=== PATIENT | female | born 1955 | race Caucasian/White ===

== ENCOUNTER 2020-11-13 09:01 | Observation (INO) | payer OTHER, MEDICARE ==
[~2020-11-13] VITALS: Ht 152.4 cm; Wt 61.2 kg
[~2020-11-13 09:01] MED LIST: AMIL5 PO; AMLO5 PO; ASPI81EC PO; ATEN50; Aspirin EC81 MG PO; CODBUTASA PO; FOLIC ACID PO; FOLIC ACID0.4 MG PO; IMITREX50 M1 PO; LANS30EC PO; LIPITOR PO; LISI20 PO; LORA1 PO; LORA2; NITR.4SL SL; PANT40 PO; POTCHL10ER PO; RANITIDINE PO; TOPI25 PO
[2020-11-13] MEDS ORDERED: CAL-CITRATE PL1 EAC2 PO (09:24)
[2020-11-13 09:38] LABS: BASOPHILS ABSOLUTE AUTO 0.03 K/mm3 (0.00-0.23); BASOPHILS PERCENT AUTO 0 % (0-2); EOSINOPHILS ABSOLUTE AUTO 0.03 K/mm3 (0.00-0.68); EOSINOPHILS PERCENT AUTO 0 % (0-6); Hematocrit 35.8 % (33.0-51.0); Hemoglobin 12.2 g/dL (11.5-16.0); IMMATURE GRAN ABSOLUTE AUTO 0.04 K/mm3 (0.00-0.10); IMMATURE GRAN PERCENT AUTO 0 % (0-1); LYMPHOCYTES ABSOLUTE AUTO 2.51 K/mm3 (0.84-5.20); LYMPHOCYTES PERCENT AUTO 19 % (21-46); MONOCYTES ABSOLUTE AUTO 1.25 K/mm3 (0.16-1.47); MONOCYTES PERCENT AUTO 10 % (4-13); Mean Corpuscular HGB 32.9 pg (26.0-34.0); Mean Corpuscular HGB Conc 34.1 g/dL (31.5-36.5); Mean Corpuscular Volume 97 fL (80-100); Mean Platelet Volume 11.7 fL (9.1-12.4); NEUTROPHILS ABSOLUTE AUTO 9.08 K/mm3 (1.96-9.15); NEUTROPHILS PERCENT AUTO 70 % (41-73); Platelet Count 267 K/mm3 (150-400); RDW Coefficient Variation 14.5 % (11.7-14.2); RDW Standard Deviation 51.2 fL (35.1-46.3); Red Blood Cell Count 3.71 M/mm3 (3.80-5.20); White Blood Cell Count 12.94 K/mm3 (4.00-11.30)
[2020-11-13 09:48] LABS: Alanine Aminotransfer (ALT/SGP 25 U/L (12-78); Albumin, Blood 3.6 g/dL (3.4-5.0); Alk Phos 99 U/L (50-136); Anion Gap 12 mmol/L (6-16); Aspartate Aminotrans (AST/SGOT 25 U/L (12-37); Blood Urea Nitrogen 16 mg/dL (8-24); Bun/Creatinine Ratio 17.6 (12.0-20.0); CO2, Blood 19 mmol/L (21-32); CPK Creatine Kinase 218 U/L (26-193); Calcium, Blood 9.2 mg/dL (8.5-10.1); Chloride, Blood 112 mmol/L (98-108); Creatinine, Blood 0.91 mg/dL (0.40-1.00); Globulin, Blood 3.7 g/dL (2.2-4.0); Glomerular Filtration Rate >60 (60-); Glucose, Blood 116 mg/dL (70-99); Potassium, Blood 3.6 mmol/L (3.5-5.5); Sodium, Blood 143 mmol/L (136-145); Total Protein, Blood 7.3 g/dL (6.4-8.2)
[2020-11-13 10:08] LABS: Creatine Kinase MB Index 0.9 (0.0-4.0)
[2020-11-13] MEDS ORDERED: METO25 PO (12:26)
[2020-11-13] MEDS ORDERED: Hair, Skin & N1 EACH PO (12:53)
--- NOTE | 2020-11-13 19:48 | NUR ---
PT ARRIVED ON THE FLOOR AT 1550. CLIENT ADMITTED WITH MCA ISHEMIC STROKE, GLF. NEGATIVE FOR FRACTURE. DENIED PAIN AT ARRIVAL. MEDICATED WITH TYLENOL LATER FOR R HIP. PUPILS EQUAL AND REACTIVE, EQUAL APPLICATIONS SUPPORT LEAD STRENGTH, L FACIAL DROOP. COUGH AND GAG REFLEX INTACT. CLIENT AA&OX4. PLEASANT AND COOPERATIVE. DAUGHTER PRESENT AND SUPPORTIVE. CLIENT HAS NO CONCERNS AT SHIFT CHANGE
[2020-11-14 01:28] LABS: Source, Urine Clean Catch
[2020-11-14 01:35] LABS: Bilirubin, Urine Neg (Neg); Blood, Urine 1+ (Neg); Glucose Qualitative, Urine Neg (Neg); Ketones, Urine 1+ (Neg); Leukocyte Esterase, Urine 1+ (Neg); Nitrite, Urine Neg (Neg); Protein, Urine 1+ (Neg); Urobilinogen, Urine NORM (Normal)
[2020-11-14 01:45] LABS: Appearance, Urine Clear (Clear); Bacteria Rare /hpf; Color, Urine Yellow (P-Yellow); Mucus Light (0-Heavy); Red Blood Cells, Urine 0-2 /hpf (0-2); Squamous Epithelial Cells Rare /hpf (Few)
--- NOTE | 2020-11-14 05:04 | NUR ---
SHIFT SUMMARY: VSS. AFEB. AAOX4. SLOW TO RESPOND. SPEECH CLEAR. L FACIAL DROOP. NO UNILATERAL WEAKNESS. SALES AND OPERATIONS TRAINEE/PUSHES/PULLS ALL STRONG, EQUAL BILATERALLY. BASELINE N/T AFFECTING TOES ON B FEET. MED FOR ARRIOLA X 1. DENIES R HIP PAIN TONIGHT. CONTINENT OF URINE. COMMUNICATES NEEDS. BED ALARM ON DUE TO HIGH FALL RISK. NO ACUTE OVERNIGHT EVENTS. WCTM.
[2020-11-14 05:59] LABS: Bun/Creatinine Ratio 16.1 (12.0-20.0); Calcium, Blood 8.4 mg/dL (8.5-10.1); Creatinine, Blood 0.99 mg/dL (0.40-1.00)
[2020-11-14 09:33] LABS: CHOL/HDL RATIO 2.6; Cholesterol 150 mg/dL (50-200); HDL Cholesterol 58 mg/dL (>39); LDL/HDL RATIO 1.2; Low Density Lipoprotein Chol 68 mg/dL (0-110); Triglycerides 119 mg/dL (30-160); Very Low Density Lipoprot Chol 23 mg/dL (6-32)
--- NOTE | 2020-11-14 10:57 | NUR ---
ASSUMED PT CARE @0705. CLIENT AA7OX4. PLEASANT AND COOPERATIVE. SBA. DOES REPORT HEADACHE. PREVIOUSLY MEDICATED BY POC RN. WILL MONITOR. OBDULIA GRAF DIET [facility]. SOFT MEDS WITH APPLESAUCE UP FOR MEALS. CLIENT SCHEDULED FOR ULTRASOUND AND POSSIBLE DISCHARGE TODAY.
[2020-11-14] MEDS ORDERED: ASPI81CH PO (14:47)
--- NOTE | 2020-11-14 19:20 | NUR ---
Per admit trigger, I was tasked to meet with Nicholas to offer information about ACP. She did not see a need for an AD or POLST. She wants all heroic measures. She has one dtr that is her MPOA. She was in pocess of discharge when we spoke.
--- NOTE | 2020-11-14 19:25 | NUR ---
Client discharged home with HH. Discharge paperwork and medications reviewed. Client verbalized understanding. She had no questions at DC. Client escorted by this RN to N exit by with daughter.
== END 2020-11-14 16:38 | disposition home health service (06) ==
LOC: ER 09:01 → MEDS 09:02 → ERHOLD 09:02 → MEDS 15:48
PROVIDERS: Family Medicine; Physician Assistant; ADMIT Hospitalist
DX: I63.511 Cerebral infarction due to unspecified occlusion or stenosis of right middle cerebral artery (principal); R29.810 Facial weakness; R47.81 Slurred speech; R53.1 Weakness; W01.0XXA Fall on same level from slipping, tripping and stumbling without subsequent striking against object, initial encounter; M62.82 Rhabdomyolysis; I10 Essential (primary) hypertension; K21.9 Gastro-esophageal reflux disease without esophagitis; M16.11 Unilateral primary osteoarthritis, right hip; Z79.82 Long term (current) use of aspirin; Y92.009 Unspecified place in unspecified non-institutional (private) residence as the place of occurrence of the external cause; Z87.891 Personal history of nicotine dependence
CPT/HCPCS: 36415; 70450; 73502; 80048; 80053; 80061; 81001; 82550; 82553; 85025; 92610; 93005; 93010; 93306; 93880; 97110; 97162; 99285-25; A9270; G0378; J7030

== ENCOUNTER 2021-03-09 11:52 | Emergency (ER) | payer OTHER, MEDICARE ==
[~2021-03-09] VITALS: Ht 152.4 cm; Wt 54.4 kg
[~2021-03-09 11:52] MED LIST changes: +ASPI81CH PO; +CAL-CITRATE PL1 EAC2 PO; +Hair, Skin & N1 EACH PO; +METO25 PO
[2021-03-09 13:08] LABS: Albumin, Blood 3.5 g/dL (3.4-5.0); Albumin/Globulin Ratio 0.9 (0.8-1.8); Bilirubin, Total 0.6 mg/dL (0.1-1.0); Bun/Creatinine Ratio 12.4 (12.0-20.0); Creatinine, Blood 1.05 mg/dL (0.40-1.00); Globulin, Blood 4.1 g/dL (2.2-4.0); Potassium, Blood 3.2 mmol/L (3.5-5.5); Total Protein, Blood 7.6 g/dL (6.4-8.2)
[2021-03-09 13:12] LABS: BASOPHILS ABSOLUTE AUTO 0.06 K/mm3 (0.00-0.23); BASOPHILS PERCENT AUTO 1 % (0-2); EOSINOPHILS ABSOLUTE AUTO 0.28 K/mm3 (0.00-0.68); EOSINOPHILS PERCENT AUTO 4 % (0-6); Hemoglobin 12.9 g/dL (11.5-16.0); IMMATURE GRAN ABSOLUTE AUTO 0.03 K/mm3 (0.00-0.10); IMMATURE GRAN PERCENT AUTO 0 % (0-1); LYMPHOCYTES ABSOLUTE AUTO 2.83 K/mm3 (0.84-5.20); LYMPHOCYTES PERCENT AUTO 37 % (21-46); MONOCYTES ABSOLUTE AUTO 0.59 K/mm3 (0.16-1.47); MONOCYTES PERCENT AUTO 8 % (4-13); Mean Corpuscular HGB 32.7 pg (26.0-34.0); Mean Corpuscular HGB Conc 33.9 g/dL (31.5-36.5); Mean Corpuscular Volume 96 fL (80-100); Mean Platelet Volume 10.5 fL (9.1-12.4); NEUTROPHILS ABSOLUTE AUTO 3.79 K/mm3 (1.96-9.15); NEUTROPHILS PERCENT AUTO 50 % (41-73); Platelet Count 415 K/mm3 (150-400); RDW Coefficient Variation 14.6 % (11.7-14.2); RDW Standard Deviation 51.6 fL (35.1-46.3); Red Blood Cell Count 3.95 M/mm3 (3.80-5.20); White Blood Cell Count 7.58 K/mm3 (4.00-11.30)
[2021-03-09] MEDS ORDERED: ATOR20 PO (15:49)
[2021-03-09] MEDS ORDERED: XARELTO2.5 M1 PO (15:49)
[2021-03-09] MEDS ORDERED: CLOP75 PO (15:49)
== END 2021-03-09 16:30 | disposition home or self-care (01) ==
LOC: ER 11:52
PROVIDERS: Physician Assistant
DX: I70.90 Unspecified atherosclerosis (principal); Z87.891 Personal history of nicotine dependence; Z79.82 Long term (current) use of aspirin; Z79.899 Other long term (current) drug therapy
CPT/HCPCS: 36415; 80053; 85025; 93005; 93010; 93971; 99284-25; A9270

== ENCOUNTER 2021-03-29 08:58 | Day surgery (SDC) | payer OTHER, MEDICARE ==
[~2021-03-29] VITALS: Ht 152.4 cm; Wt 61.8 kg
[~2021-03-29 08:58] MED LIST changes: +ATOR20 PO; +CLOP75 PO; +XARELTO2.5 M1 PO
--- NOTE | 2021-03-29 13:51 | NUR ---
ARRIVAL TO ICU PT ARRIVES TO ICU FROM MEDICAL OFFICE TECHNICIAN AT 1225. PT c 7 F CATH TO RIGHT FEMORAL ARTERY. PRESSURE BAG c TRANSDUCER ON ARRIVAL. STARTED TPA AT 1 MG/HR X 6 HOURS. NO HEMATOMA, SWELLING, ECCHYMOSIS NOTED. NON TENDER. BILATERAL PEDAL PULSES BY DOPPLER. PT REPORTS CHRONIC NUMBNESS TO FEET BILATERALLY, WORSE ON LEFT. A&OX 4. LUNGS CLEAR. VSS. HEPARIN STARTED AT 300 UNITS/HR. PLAN TO RETURN TO MEDICAL OFFICE TECHNICIAN TOMORROW. WILL CONTINUE TO MONITOR.
--- NOTE | 2021-03-29 17:32 | NUR ---
SHIFT SUMMARY PT ADMITTED FROM [facility] FOR EXT RECOVERY THIS SHIFT. PLAN TO RETURN TO [facility] TOMORROW. TPA INFUSING TO RIGHT GROIN SHEATH AT 1 MG/HR, SITE WNL, HEPARIN IVP AT 300 UNITS/HR. BILATERAL PULSES BY DOPPLER, SKIN P/W/D. PT REPORTS NO CHANGE TO CHRONIC NUMBNESS IN FEET. VSS. WILL CONTINUE TO MONITOR UNTIL REPORT TO ONCOMING NURSE.
--- NOTE | 2021-03-29 19:38 | NUR ---
CATHFLOW CATHFLOW RATE DECREASED TO 0.5MG/HR AT 1930
--- NOTE | 2021-03-29 22:42 | NUR ---
ASSUMED CARE AT 1900 PT LAYING IN BED IN REVERSE TRENDELENBURG POSITION INTERACTING WITH AUSTYN. PT IS ALERT/ORIENTED X4 AND ABLE TO MAKE HER NEEDS KNOWN. SPO2 >95% ON RA. AFEBRILE. HR 60-80'S. BP STABLE. SHEETH TO RT GROIN DRESSING C/D/I; AREA AROUND SHEETH SHOWS NO SIGNS OF BLEEDING, HEMATOMA, OR PAIN; CATHFLOW INFUSING VIA RT GROIN AT 0.5MG/HR STARTING AT 1930. BILATERAL LOWER EXTREMITY PULSES FOUND VIA DOPPLER. HEPARIN INFUSING AT 300UNITS/HR. PT VERY COMPLIENT WITH NOT MOVING OR BENDING RT LEG. NO C/O PAIN TO BLE. SEE SHIFT ASSESSMENT FOR FULL ASSESSMENT.
--- NOTE | 2021-03-29 23:47 | NUR ---
REASSESSMENT RT GROIN SITE CONT TO SHOW NO SIGNS OF BLEEDING, HEMATOMA, OR PAIN. PT RESTING COMFORTABLY.
[2021-03-30 01:52] LABS: Source, Urine Catheter
[2021-03-30 01:56] LABS: Appearance, Urine Clear (Clear); Bilirubin, Urine Neg (Neg); Blood, Urine Neg (Neg); Color, Urine Yellow (P-Yellow); Glucose Qualitative, Urine Neg (Neg); Ketones, Urine Neg (Neg); Leukocyte Esterase, Urine Neg (Neg); Nitrite, Urine Neg (Neg); Protein, Urine Neg (Neg); Urobilinogen, Urine NORM (Normal); pH, Urine 6.5 (5.0-8.0)
--- NOTE | 2021-03-30 01:59 | NUR ---
UPDATE PT EXPERIENCEING DISCOMFORT RELATED TO URINARY RETENTION. BLADDER SCAN PERFORMED SHOWING 450ML URINE IN BLADDER. 14f CLOUDE REED INSERTED AT 0130; PT TOLERATED WELL. UA COLLECTED AND SENT.
--- NOTE | 2021-03-30 06:40 | NUR ---
END OF SHIFT SUMMARY PT SLEPT FOR A FEW HOURS T/O THE SHIFT. PT IS ALERT/ORIENTED X4 AND ABLE TO MAKE HER NEEDS KNOWN. SPO2 >95% ON RA. AFEBRILE. HR 60-70'S. BP STABLE. RT GROIN SHOWS NO SIGNS OF BLEEDING, HEMATOMA, OR PAIN; CATHFLOW INFUSING VIA RT GROIN AT 0.5MG/HR. HEPARIN INFUSING AT 300UNITS/HR. BLE FOUND VIA DOPPLER. PT VERY COMPLIENT WITH KEEPING RLE STRAIGHT. REED CATH PATENT AND DRAINING TO GRAVITY. WILL REPORT TO AM RN WHEN AVAILABLE.
--- NOTE | 2021-03-30 10:00 | NUR ---
Care Assumed 0700 - Extended recovery Pt in reverse trendelenburg position, sheeth to RT groin site, dressing c/d/I. A/O X 4, pt on phone with daughter to confirm ride for later on today. At 0700 tPA 0.5 mg/hr infusing via RT groin site, increased to 1 mg/hr per order after pt returned from OR. Heparin infusing @ 300 units/hr, infusing via right wrist IV. Pt taken to OR around 0730 and returned an hour later. Plan to continue to keep pt in ICU until tPA is completed. After that sheath to be removed and pt may be discharged once site is stable. Pt states having a headache and nausea/ possible vomiting, emesis bag in hand. Treated per emar. No vomiting and nausea has improved after Zofran. VSS. NSR. On .
--- NOTE | 2021-03-30 14:13 | NUR ---
tPA and Heparin SB -1307 tPA and Heparin both placed on SB. PTT ordered for 1400 per charge nurse. Right groin site, C/D/I, and on NS pressure bag. Pt states having a headache, treated per emar.
[2021-03-30] MEDS ORDERED: XARELTO20 MG PO (15:55)
--- NOTE | 2021-03-30 16:58 | NUR ---
Sheath removal Sheath removed by [facility] staff at bedside, Mike. Pt tolerated well. Complains of nausea and pain, treated per emar. Alaina dressing applied. Pt educated and states understanding.
--- NOTE | 2021-03-30 18:35 | NUR ---
Provider call - Right femoral bleed/hematoma Right femoral site with Alaina dressing soaked in blood/oozing. Small hematoma noted on site. Dressing changed and 15 mintues of pressure held. Hematoma resolved after pressure being held. Site very tender (9/10), headache (10/10), and nausea, treated per emar. Dr. Simental called and made aware. Provider would like site reassessed at 1999 and if site is within normal and pt can be discharged home. Pt states she lives alone and cell phone is currently not working. Friend/neighbor at bedside and states she can come back at 2030 to pickup patient. If pts femoral site continues to not be stable provider would like pt to stay over night but not in ICU. Charge nurse Shabana updated and transfer orders for PCU placed. LETA. HAR. on RA.
--- NOTE | 2021-03-31 05:54 | NUR ---
END OF SHIFT SUMMARY NO ACUTE EVENTS OVERNIGHT, WAS ABLE TO SLEEP FOR SEVERAL HOURS. PT IS ALERT/ORIENTED X4 AND ABLE TO MAKE HER NEEDS KNONW. SPO2 >98% ON RA. VSS. RT GROIN SITE SHOWS NO SIGNS OF BLEEDING OR HEMATOMA ALL SHIFT. PT TOLERATING SITTING UP IN BED AND REPOSITIONING [id number]. SHE IS MORE COMFORTABLE BEING DISCHARGED TODAY AND STATES THAT SHE IS "FEELING BETTER". PT HAS NOT HAD ANY PAIN AND NO NAUSEA. PT TOLERATING FOOD. REED PATENT AND DRAINING TO GRAVITY. WILL REPORT TO AM RN WHEN AVAILABLE.
--- NOTE | 2021-03-31 08:45 | NUR ---
ASSESSMENT- PT AWAKE, ALERT, COOPERATIVE. DENIES COMPLAINTS, DENIES PAIN, STATES DOES HAVE TINGLING IN TOES BUT NOT A NEW PROBLEM. BILATERAL FEET WARM, SENSATION INTACT, COLOR WNL. PEDAL PULSES FAINTLY PALPABLE, CHECKED WITH DOPPLER. LUNGS CLEAR, NO SOB. APICAL REGULAR. SITTING UP IN CHAIR. POOR APPETITE. RIGHT FEMORAL SITE WITH ECCHYMOSIS PRESENT AND HEMATOMA PRESENT, SITE TENDER TO TOUCH. REED INTACT WITH CLEAR YELLOW URINE. CATH D/C. PIV INTACT
--- NOTE | 2021-03-31 12:00 | NUR ---
VSS, HAS BEEN SLEEPING IN CHAIR. AWAKE, ALERT. COOPERATIVE. DENIES COMPLAINTS
[2021-03-31] MEDS ORDERED: ATOR20 PO (13:07)
--- NOTE | 2021-03-31 14:00 | NUR ---
CALLED DR. NICHOLSON WITH PT UPDATE. ORDERS TO RESTART PLAVIX AND XARELTO, STOP BABY ASPIRIN AND DISCHARGE HOME. PRESCRIPTIONS FOR XARELTO AND LIPITOR CALLED TO [facility]. REVIEWED DISCHARGE INSTRUCTIONS, STATES UNDERSTANDING.
--- NOTE | 2021-03-31 14:20 | NUR ---
PT DISCHARGED HOME, NEIGHBOR IS PICKING UP. REVIEWED PRECAUTIONS, INSTRUCTIONS, STATES UNDERSTANDING. MESSAGE LEFT FOR [facility] FOR F/U APPT, PT TO CALL DR. PHILLIPS'S OFFICE SATURDAY (ATTEMPT TO CALL BUT OFFICE CLOSED NOW). PIV REMOVED. SITE UNCHANGED.
== END 2021-03-31 14:15 | disposition home or self-care (01) ==
LOC: MHTC 08:58 → ICUW 13:21 → MHTC 03-31 14:15
PROVIDERS: Radiology Diagnostic Radiology
DX: I70.212 Atherosclerosis of native arteries of extremities with intermittent claudication, left leg (principal); I74.3 Embolism and thrombosis of arteries of the lower extremities; I11.9 Hypertensive heart disease without heart failure; Z91.040 Latex allergy status; Z87.891 Personal history of nicotine dependence
CPT/HCPCS: 36415; 37184; 37185; 37211; 37214; 37228; 51703; 75625; 75716; 75774; 76937; 81003; 85018; 85384; 85730; 93308; 93321; 99152; 99153; A9270; C1725; C1757; C1769; C1887; C1894; J1644; J2250; J2405; J2997; J3010; J7030; J7040; J7050; Q9967

== ENCOUNTER → 2025-02-08 | Outpatient (CLI) | payer OTHER, MEDICARE ==
[~2025-02-08] MED LIST changes: +IMITREX50 M2 PO; +MECL25 PO; +METOPROLOL TART25 MG PO; +ONDA4 PO; +OXYC5 PO; +XARELTO20 MG PO
[2025-02-08 15:25] LABS: BASOPHILS ABSOLUTE AUTO 0.06 K/mm3 (0.00-0.23); BASOPHILS PERCENT AUTO 1 % (0-2); EOSINOPHILS ABSOLUTE AUTO 0.07 K/mm3 (0.00-0.68); EOSINOPHILS PERCENT AUTO 1 % (0-6); Hematocrit 33.8 % (33.0-51.0); Hemoglobin 11.5 g/dL (11.5-16.0); IMMATURE GRAN ABSOLUTE AUTO 0.02 K/mm3 (0.00-0.10); IMMATURE GRAN PERCENT AUTO 0 % (0-1); LYMPHOCYTES ABSOLUTE AUTO 2.22 K/mm3 (0.84-5.20); LYMPHOCYTES PERCENT AUTO 40 % (21-46); MONOCYTES ABSOLUTE AUTO 0.49 K/mm3 (0.16-1.47); MONOCYTES PERCENT AUTO 9 % (4-13); Mean Corpuscular HGB 31.2 pg (26.0-34.0); Mean Corpuscular Volume 92 fL (80-100); Mean Platelet Volume 9.8 fL (9.1-12.4); NEUTROPHILS ABSOLUTE AUTO 2.75 K/mm3 (1.96-9.15); NEUTROPHILS PERCENT AUTO 49 % (41-73); Platelet Count 306 K/mm3 (150-400); RDW Coefficient Variation 16.6 % (11.7-14.2); RDW Standard Deviation 56.1 fL (35.1-46.3); Red Blood Cell Count 3.69 M/mm3 (3.80-5.20); White Blood Cell Count 5.61 K/mm3 (4.00-11.30)
[2025-02-08 15:40] LABS: Albumin, Blood 3.4 g/dL (3.4-5.0); Albumin/Globulin Ratio 0.9 (0.8-1.8); Bilirubin, Total 0.4 mg/dL (0.1-1.0); Bun/Creatinine Ratio 14.6 (12.0-20.0); Calcium, Blood 8.1 mg/dL (8.5-10.1); Creatinine, Blood 1.3 mg/dL (0.40-1.00); Globulin, Blood 3.6 g/dL (2.2-4.0); Potassium, Blood 3.9 mmol/L (3.5-5.5)
== END ==
LOC: LAB 15:21 → LAB SHORT 15:21
PROVIDERS: Family Medicine
DX: R00.1 Bradycardia, unspecified (principal)
CPT/HCPCS: 80053; 83880; 85025

== ENCOUNTER 2025-08-05 09:11 | Observation (INO) | payer OTHER, MEDICARE ==
[~2025-08-05] VITALS: Ht 152.4 cm; Wt 38.2 kg
[2025-08-05 09:50] LABS: BASOPHILS ABSOLUTE AUTO 0.07 K/mm3 (0.00-0.23); BASOPHILS PERCENT AUTO 1 % (0-2); EOSINOPHILS ABSOLUTE AUTO 0.42 K/mm3 (0.00-0.68); EOSINOPHILS PERCENT AUTO 6 % (0-6); Hematocrit 30.9 % (33.0-51.0); Hemoglobin 10.4 g/dL (11.5-16.0); IMMATURE GRAN ABSOLUTE AUTO 0.01 K/mm3 (0.00-0.10); IMMATURE GRAN PERCENT AUTO 0 % (0-1); LYMPHOCYTES ABSOLUTE AUTO 1.50 K/mm3 (0.84-5.20); LYMPHOCYTES PERCENT AUTO 21 % (21-46); MONOCYTES ABSOLUTE AUTO 0.57 K/mm3 (0.16-1.47); MONOCYTES PERCENT AUTO 8 % (4-13); Mean Corpuscular HGB Conc 33.7 g/dL (31.5-36.5); Mean Corpuscular Volume 90 fL (80-100); NEUTROPHILS ABSOLUTE AUTO 4.52 K/mm3 (1.96-9.15); NEUTROPHILS PERCENT AUTO 64 % (41-73); NRBC ABSOLUTE 0.00 K/mm3 (0.00-0.02); NRBC Auto 0.0 /100 WBC (0.0-0.2); Platelet Count 332 K/mm3 (150-400); RDW Coefficient Variation 14.8 % (11.7-14.2); RDW Standard Deviation 48.6 fL (35.1-46.3)
[2025-08-05 10:22] LABS: Alanine Aminotransfer (ALT/SGP 13.0 U/L (12-78); Albumin, Blood 2.6 g/dL (3.4-5.0); Albumin/Globulin Ratio 0.7 (0.8-1.8); Anion Gap 13.0 mmol/L (3-11); Aspartate Aminotrans (AST/SGOT 28.0 U/L (12-37); Bilirubin, Total 0.7 mg/dL (0.1-1.0); Blood Urea Nitrogen 16.0 mg/dL (8-24); CO2, Blood 19.0 mmol/L (21-32); Calcium, Blood 7.0 mg/dL (8.5-10.1); Chloride, Blood 110.0 mmol/L (98-108); Creatinine, Blood 1.33 mg/dL (0.40-1.00); Globulin, Blood 3.9 g/dL (2.2-4.0); Glucose, Blood 122.0 mg/dL (70-99); Potassium, Blood 2.6 mmol/L (3.5-5.5); Sodium, Blood 139.0 mmol/L (136-145); Thyroid Stimulating Hormone 1.15 uIU/mL (0.360-4.800); Total Protein, Blood 6.5 g/dL (6.4-8.2)
[2025-08-05] MEDS ORDERED: NS 1,000 ML IV SCH ×2 (10:35→14:50)
[2025-08-05] MEDS ORDERED: Magnesium Sulf 2 GM/Water 50ML 50 ML IV ONE (10:45)
[2025-08-05] MEDS ORDERED: FLU VACC TS2025(65UP)/MF59C/PF 45 MCG/0.5 ML SYRINGE IM SCH (11:25)
--- NOTE | 2025-08-05 15:15 | NUR ---
PT ADMITTED TO ROOM 361 FROM ER.
[2025-08-05 15:20] VITALS: BP 164/109
[2025-08-05 16:23] LABS: Albumin, Blood 2.5 g/dL (3.4-5.0); Anion Gap 12 mmol/L (3-11); Blood Urea Nitrogen 14 mg/dL (8-24); CO2, Blood 19 mmol/L (21-32); Calcium, Blood 7.0 mg/dL (8.5-10.1); Chloride, Blood 114 mmol/L (98-108); Creatinine, Blood 1.28 mg/dL (0.40-1.00); Glucose, Blood 98 mg/dL (70-99); Phosphorus, Blood 2.4 mg/dL (2.5-4.9); Potassium, Blood 3.6 mmol/L (3.5-5.5); Sodium, Blood 141 mmol/L (136-145)
[2025-08-05] MEDS ORDERED: OMEP20ER PO (16:59)
[2025-08-05] MEDS ORDERED: FEROSUL PO (17:37)
--- NOTE | 2025-08-05 19:24 | NUR ---
SHIFT SUMMARY PT IS A/OX4. INDEPENDENT IN THE ROOM. PT REPORTS CHEST PAIN AND SOB HAS RESOLVED SINCE ADMISSION. ON RA, SATS WNL. NS RUNNING @ 125. PT IS PLEASANT AND COOPERATIVE WITH CARE.
[2025-08-05 20:10] VITALS: BP 151/101
[2025-08-06 02:42] LABS: Campylobacter Sp Not Detected (NOT DETECT)
[2025-08-06 02:43] LABS: E. Coli O157 Not Detected (NOT DETECT); Enteroaggregative E. coli-EAEC Not Detected (NOT DETECT); Enteropathogenic E. coli-EPEC Not Detected (NOT DETECT); Enterotoxigenic E. coli-ETEC Not Detected (NOT DETECT); Salmonella Sp Not Detected (NOT DETECT); Shiga Toxin-prod E. coli-STEC Not Detected (NOT DETECT); Shigella/Enteroin E. coli-EIEC Not Detected (NOT DETECT); Vibrio Sp Not Detected (NOT DETECT)
--- NOTE | 2025-08-06 05:03 | NUR ---
SHIFT SUMMARY PT A&Ox4 AND VERY PLEASANT. PT MEDICATED WITH TYLENOL FOR LEFT SHOULDER PAIN PER EMAR. NS INFUSING @ 125ml/hr. IND IN ROOM. NO ACUTE CHANGES. VSS. BED IN LOWEST POSITION AND CALL LIGHT IN REACH.
[2025-08-06 05:04] VITALS: BP 135/91
[2025-08-06 05:16] LABS: BASOPHILS ABSOLUTE AUTO 0.10 K/mm3 (0.00-0.23); BASOPHILS PERCENT AUTO 1 % (0-2); EOSINOPHILS ABSOLUTE AUTO 0.53 K/mm3 (0.00-0.68); EOSINOPHILS PERCENT AUTO 8 % (0-6); Hematocrit 30.5 % (33.0-51.0); Hemoglobin 10.2 g/dL (11.5-16.0); IMMATURE GRAN ABSOLUTE AUTO 0.02 K/mm3 (0.00-0.10); IMMATURE GRAN PERCENT AUTO 0 % (0-1); LYMPHOCYTES ABSOLUTE AUTO 1.81 K/mm3 (0.84-5.20); LYMPHOCYTES PERCENT AUTO 26 % (21-46); MONOCYTES ABSOLUTE AUTO 0.59 K/mm3 (0.16-1.47); MONOCYTES PERCENT AUTO 8 % (4-13); Mean Corpuscular HGB Conc 33.4 g/dL (31.5-36.5); Mean Corpuscular Volume 91 fL (80-100); NEUTROPHILS ABSOLUTE AUTO 4.00 K/mm3 (1.96-9.15); NEUTROPHILS PERCENT AUTO 57 % (41-73); NRBC ABSOLUTE 0.00 K/mm3 (0.00-0.02); NRBC Auto 0.0 /100 WBC (0.0-0.2); Platelet Count 327 K/mm3 (150-400); RDW Coefficient Variation 14.7 % (11.7-14.2); RDW Standard Deviation 49.5 fL (35.1-46.3)
[2025-08-06 05:41] LABS: Anion Gap 11.0 mmol/L (3-11); Blood Urea Nitrogen 12.0 mg/dL (8-24); CO2, Blood 16.0 mmol/L (21-32); Calcium, Blood 7.1 mg/dL (8.5-10.1); Chloride, Blood 116.0 mmol/L (98-108); Creatinine, Blood 1.17 mg/dL (0.40-1.00); Glucose, Blood 82.0 mg/dL (70-99); Potassium, Blood 3.6 mmol/L (3.5-5.5); Sodium, Blood 139.0 mmol/L (136-145)
[2025-08-06 08:15] VITALS: BP 137/83
[2025-08-06] MEDS ORDERED: Enoxaparin 40 MG/0.4 ML SYR SC SCH (09:00)
[2025-08-06 14:53] VITALS: BP 129/73
--- NOTE | 2025-08-06 19:27 | NUR ---
SHIFT SUMMARY PT IS A/OX4. INDEPENDENT IN THE ROOM. NO ACUTE CHANGES THROUGHOUT THIS SHIFT. LR RUNNING @ 150 ML/HR. PT MEDICATED WITH TYLENOL PER MAR FOR LEFT SHOULDER PAIN/MUSCLE STRAIN. PT IS PLEASANT AND COOPERATIVE WITH CARE AND CALLS APPROPRIATELY USING THE CALL LIGHT.
[2025-08-06 21:26] VITALS: BP 144/79
--- NOTE | 2025-08-07 05:58 | NUR ---
SHIFT SUMMARY PT IS A&OX4, PLEASANT AND COOPERATIVE WITH CARE. PT REPORTS NO NAUSEA, BUT COPIOUS AMOUNT OF DIARRHEA THIS SHIFT. NO ACUTE CHANGES THIS SHIFT. PT RESTED T/O SHIFT WITH EVEN AND UNLABORED RESPIRATIONS, BED IN THE LOWEST POSITION, AND CALL LIGHT WITHIN REACH.
[2025-08-07 06:16] LABS: BASOPHILS ABSOLUTE AUTO 0.10 K/mm3 (0.00-0.23); BASOPHILS PERCENT AUTO 1 % (0-2); EOSINOPHILS ABSOLUTE AUTO 0.49 K/mm3 (0.00-0.68); EOSINOPHILS PERCENT AUTO 7 % (0-6); Hematocrit 29.3 % (33.0-51.0); Hemoglobin 9.7 g/dL (11.5-16.0); IMMATURE GRAN ABSOLUTE AUTO 0.02 K/mm3 (0.00-0.10); IMMATURE GRAN PERCENT AUTO 0 % (0-1); LYMPHOCYTES ABSOLUTE AUTO 1.44 K/mm3 (0.84-5.20); LYMPHOCYTES PERCENT AUTO 20 % (21-46); MONOCYTES ABSOLUTE AUTO 0.41 K/mm3 (0.16-1.47); MONOCYTES PERCENT AUTO 6 % (4-13); Mean Corpuscular HGB Conc 33.1 g/dL (31.5-36.5); Mean Corpuscular Volume 92 fL (80-100); NEUTROPHILS ABSOLUTE AUTO 4.62 K/mm3 (1.96-9.15); NEUTROPHILS PERCENT AUTO 65 % (41-73); NRBC ABSOLUTE 0.00 K/mm3 (0.00-0.02); NRBC Auto 0.0 /100 WBC (0.0-0.2); Platelet Count 310 K/mm3 (150-400); RDW Coefficient Variation 15.1 % (11.7-14.2); RDW Standard Deviation 51.1 fL (35.1-46.3)
[2025-08-07 06:52] LABS: Anion Gap 10.0 mmol/L (3-11); Blood Urea Nitrogen 12.0 mg/dL (8-24); CO2, Blood 19.0 mmol/L (21-32); Calcium, Blood 7.8 mg/dL (8.5-10.1); Chloride, Blood 115.0 mmol/L (98-108); Creatinine, Blood 1.15 mg/dL (0.40-1.00); Glucose, Blood 83.0 mg/dL (70-99); Potassium, Blood 3.8 mmol/L (3.5-5.5); Sodium, Blood 140.0 mmol/L (136-145)
[2025-08-07 07:43] VITALS: BP 174/81
--- NOTE | 2025-08-07 09:35 | NUR ---
pt sitting up on the side of the bed, awake a/ox4, pleasant and cooperative with care, follows commands well, reports pain to her shoulder, tylenol given, lungs are clear t/o, resp even and unlabored, no cough noted, hrr, trace edema noted to b/l le, ppp+2, cap refill <3 sec, vs stable, afebrile, piv to rac site is clear and patent, btx4, abd flat soft nontender, voids via bathroom, skin c/w/d, mckay boykin, call light in reach.
--- NOTE | 2025-08-07 13:45 | NUR ---
PT HAS BEEN DISCHARGED TO HOME, SCRIPT FOR WORK RELEASE WAS GIVEN TO HER, PIV REMOVED INTACT, WENT OVER DISCHARGE INSTRUCTIONS WITH HER,SHE VERBALIZED UNDERSTANDING, WILL RESUME HOME MEDS TOMORROW, LEFT VIA WHEELCHAIR WITH ALL HER BELONGINGS AND HER DAUGHTER AND OUTPATIENT CODER IN ATTENDENCE.
== END 2025-08-07 13:44 | disposition home or self-care (01) ==
LOC: ER 09:11 → MEDS 09:12 → ER 11:21 → MEDS 15:14 → ENPENDDIS 08-07 13:19 → MEDS 08-07 13:44
PROVIDERS: Family Medicine; ADMIT Family Medicine
DX: N17.9 Acute kidney failure, unspecified (principal); A08.11 Acute gastroenteropathy due to Norwalk agent; I11.9 Hypertensive heart disease without heart failure; E87.6 Hypokalemia; E83.42 Hypomagnesemia; M25.512 Pain in left shoulder; R07.81 Pleurodynia; D64.9 Anemia, unspecified; I25.10 Atherosclerotic heart disease of native coronary artery without angina pectoris; I25.2 Old myocardial infarction; I73.9 Peripheral vascular disease, unspecified; Z86.73 Personal history of transient ischemic attack (TIA), and cerebral infarction without residual deficits; Z87.891 Personal history of nicotine dependence; Z79.01 Long term (current) use of anticoagulants; Z79.899 Other long term (current) drug therapy; Z90.81 Acquired absence of spleen
CPT/HCPCS: 36415; 71046; 73030; 80048; 80053; 80069; 83735; 83880; 84443; 84484; 85025; 85379; 87015; 87045; 87046; 87205; 87507; 87899; 93005; 93010; 93306; 96361; 96374; 96375; 99285-25; A9270; G0378; J3475; J3480; J7030; J7050; J7120

== ENCOUNTER 2025-08-14 15:14 | Inpatient (IN) | payer OTHER, MEDICARE ==
[~2025-08-14] VITALS: Ht 152.4 cm; Wt 39.9 kg
[~2025-08-14 15:14] MED LIST changes: +ATOR40TA PO; +FEROSUL325 M1 PO; +OMEP20ER PO
[2025-08-14 16:03] LABS: Source, Urine Clean Catch
[2025-08-14 16:07] LABS: BASOPHILS ABSOLUTE AUTO 0.07 K/mm3 (0.00-0.23); BASOPHILS PERCENT AUTO 1 % (0-2); EOSINOPHILS ABSOLUTE AUTO 0.47 K/mm3 (0.00-0.68); EOSINOPHILS PERCENT AUTO 5 % (0-6); Hematocrit 31.4 % (33.0-51.0); Hemoglobin 10.4 g/dL (11.5-16.0); IMMATURE GRAN ABSOLUTE AUTO 0.03 K/mm3 (0.00-0.10); IMMATURE GRAN PERCENT AUTO 0 % (0-1); LYMPHOCYTES ABSOLUTE AUTO 2.04 K/mm3 (0.84-5.20); LYMPHOCYTES PERCENT AUTO 22 % (21-46); MONOCYTES ABSOLUTE AUTO 0.73 K/mm3 (0.16-1.47); MONOCYTES PERCENT AUTO 8 % (4-13); Mean Corpuscular HGB Conc 33.1 g/dL (31.5-36.5); Mean Corpuscular Volume 91 fL (80-100); NEUTROPHILS ABSOLUTE AUTO 5.79 K/mm3 (1.96-9.15); NEUTROPHILS PERCENT AUTO 64 % (41-73); NRBC ABSOLUTE 0.00 K/mm3 (0.00-0.02); NRBC Auto 0.0 /100 WBC (0.0-0.2); Platelet Count 346 K/mm3 (150-400); RDW Coefficient Variation 15.3 % (11.7-14.2); RDW Standard Deviation 50.3 fL (35.1-46.3)
[2025-08-14 16:08] LABS: Bilirubin, Urine Neg (Neg); Glucose Qualitative, Urine Neg (Neg); Ketones, Urine Neg (Neg); Leukocyte Esterase, Urine Neg (Neg); Protein, Urine 2+ (Neg); Specific Gravity, Urine 1.005 (1.003-1.022); Urobilinogen, Urine NORM (Normal)
[2025-08-14 16:20] LABS: Color, Urine Pale Yellow (P-Yellow)
[2025-08-14 16:21] LABS: Red Blood Cells, Urine 0-2 /hpf (0-2); White Blood Cells, Urine 0-2 /hpf (0-5)
[2025-08-14 16:31] LABS: Alanine Aminotransfer (ALT/SGP 14.0 U/L (12-78); Albumin, Blood 2.9 g/dL (3.4-5.0); Albumin/Globulin Ratio 0.7 (0.8-1.8); Anion Gap 9.0 mmol/L (3-11); Aspartate Aminotrans (AST/SGOT 25.0 U/L (12-37); Bilirubin, Total 0.6 mg/dL (0.1-1.0); Blood Urea Nitrogen 13.0 mg/dL (8-24); CO2, Blood 21.0 mmol/L (21-32); Calcium, Blood 7.2 mg/dL (8.5-10.1); Chloride, Blood 113.0 mmol/L (98-108); Creatinine, Blood 1.64 mg/dL (0.40-1.00); Globulin, Blood 4.0 g/dL (2.2-4.0); Glucose, Blood 123.0 mg/dL (70-99); Potassium, Blood 2.9 mmol/L (3.5-5.5); Sodium, Blood 140.0 mmol/L (136-145); Total Protein, Blood 6.9 g/dL (6.4-8.2)
[2025-08-14] MEDS ORDERED: Potassium Chl 20MEQ/Water100ML 100 ML IV ONE (18:55)
[2025-08-14] MEDS ORDERED: NS 1,000 ML IV SCH (19:15)
[2025-08-14] MEDS ORDERED: Magnesium Sulf 2 GM/Water 50ML 100 ML IV ONE (19:25)
[2025-08-14] MEDS ORDERED: Ondansetron HCl 2 MG / ML 2ML Vial IV PRN (20:55)
[2025-08-14] MEDS ORDERED: FLU VACC TS2025(65UP)/MF59C/PF 45 MCG/0.5 ML SYRINGE IM SCH (21:00)
[2025-08-14 22:49] VITALS: BP 163/94
[2025-08-15 00:03] LABS: Magnesium, Blood 1.8 mg/dL (1.6-2.4); Potassium, Blood 3.8 mmol/L (3.5-5.5)
[2025-08-15 03:42] VITALS: BP 166/94
--- NOTE | 2025-08-15 06:12 | NUR ---
NOC SHIFT SUMMARY PT A&OX4, AMB W/ ASSIST, TOLERATING PO, VOIDING, AND DENIED PAIN. LR CONT TO INFUSE PER ORDER. PT DID NOT C/O DIFFICULTY W/ URINATION. UROLOGY CONSULT CALLED ON. CALL LIGHT WITHIN REACH AND PT ABLE TO MAKE NEEDS KNOWN.
[2025-08-15 06:52] LABS: Magnesium, Blood 1.7 mg/dL (1.6-2.4)
[2025-08-15 06:53] LABS: Anion Gap 12.0 mmol/L (3-11); Blood Urea Nitrogen 12.0 mg/dL (8-24); CO2, Blood 18.0 mmol/L (21-32); Calcium, Blood 7.6 mg/dL (8.5-10.1); Chloride, Blood 114.0 mmol/L (98-108); Creatinine, Blood 1.37 mg/dL (0.40-1.00); Glucose, Blood 71.0 mg/dL (70-99); Potassium, Blood 4.0 mmol/L (3.5-5.5); Sodium, Blood 140.0 mmol/L (136-145)
[2025-08-15 07:30] VITALS: BP 158/86
[2025-08-15 11:41] VITALS: BP 146/91
[2025-08-15 15:20] VITALS: BP 146/92
--- NOTE | 2025-08-15 18:02 | NUR ---
END OF SHIFT NOTE PATIENT RESTING IN BED WITH FAMILY IN ROOM. A&O4, IND IN ROOM AND TO BATHROOM. HAT IN TOILET FOR STRAINING URINE FOR STONES. IV INFUSING TO ORDER. PATIENT ABLE TO MAKE NEEDS KNOWN, TELE IN PLACE, CALL LIGHT IN REACH. STOOL SAMPLE SENT, POSSIBLE BLOOD NOTICED IN STOOL WITH BOWEL MOVEMENT ON THIS SHIFT, DR MADISON MADE AWARE. NO OTHER CONCERNS FOR THIS SHIFT
[2025-08-15 20:02] VITALS: BP 155/91
[2025-08-15 23:56] VITALS: BP 143/92
[2025-08-16 04:05] VITALS: BP 147/85
--- NOTE | 2025-08-16 06:04 | NUR ---
SHIFT SUMMARY PATIENT ADMITTED FOR FELY. ALERT AND ORIENTED X4. VSS. PATIENT INDEPENDENT IN ROOM. HAT IN TOILET TO CATCH URINE FOR STRAINING. 1 URINE NOT STRAINED THIS SHIFT DUE TO BOWEL MOVEMENT. NO KIDNEY STONES FOUND IN URINE THIS SHIFT. PATIENT COMPLAINED OF HEADACHE AT THE BEGINNING OF SHIFT, PATIENT GIVEN 500MG TYLENOL PER HOSPITALIST ORDER. LACTATED RINGERS CONTINUE AT 150ML/HR. PATIENT RESTING AT THIS TIME WITH EYES CLOSED, RESPIRATIONS EVEN AND UNLABORED. BED RAILS UP X2. BED IN LOWEST POSITION FOR SAFETY. CALL LIGHT WITHIN REACH.
[2025-08-16 07:06] LABS: Anion Gap 9.0 mmol/L (3-11); Blood Urea Nitrogen 15.0 mg/dL (8-24); CO2, Blood 20.0 mmol/L (21-32); Calcium, Blood 8.0 mg/dL (8.5-10.1); Chloride, Blood 112.0 mmol/L (98-108); Creatinine, Blood 1.47 mg/dL (0.40-1.00); Glucose, Blood 77.0 mg/dL (70-99); Magnesium, Blood 1.3 mg/dL (1.6-2.4); Potassium, Blood 4.1 mmol/L (3.5-5.5); Sodium, Blood 137.0 mmol/L (136-145)
[2025-08-16 07:26] VITALS: BP 150/93
[2025-08-16] MEDS ORDERED: Mag Sulfate 1 GM/D5% 100ML 100 ML IV STA (07:42)
[2025-08-16 07:53] LABS: Hematocrit 28.9 % (33.0-51.0); Hemoglobin 9.6 g/dL (11.5-16.0); Mean Corpuscular HGB Conc 33.2 g/dL (31.5-36.5); Mean Corpuscular Volume 92 fL (80-100); NRBC ABSOLUTE 0.00 K/mm3 (0.00-0.02); NRBC Auto 0.0 /100 WBC (0.0-0.2); Platelet Count 325 K/mm3 (150-400); RDW Coefficient Variation 15.5 % (11.7-14.2); RDW Standard Deviation 51.8 fL (35.1-46.3)
[2025-08-16 11:20] VITALS: BP 157/97
[2025-08-16 12:14] LABS: Stool Occult Blood Guaiac 1 Pos (Neg)
[2025-08-16] MEDS ORDERED: MAGNESIUM OXID500 MG PO (12:52)
[2025-08-16] MEDS ORDERED: TAMS.4ER PO (12:53)
--- NOTE | 2025-08-16 17:09 | NUR ---
DISCHARGE NOTE- PT WAS GIVEN VERBAL AND WRITTEN DISCHARGE INSTRUCTIONS AND ACKNOWLEDGED UNDERSTANDING OF THEM. PT IV'S AND TELE DC'D PRIOR TO DISCHARGE. PT ESCORTED OUT VIA WC BY THE SOFTWARE INTERN, NO S&S OF DISTRESS NOTED AT THE TIME OF DISCHARGE.
== END 2025-08-16 16:15 | disposition home or self-care (01) | DRG 684 ==
LOC: ER 15:14 → MEDS 20:50 → ENPENDDIS 08-16 11:00 → MEDS 08-16 16:15
PROVIDERS: Internal Medicine; Nurse Practitioner Acute Care; Physician Assistant; ADMIT Student in an Organized Health Care Education/Training Program
DX: N17.9 Acute kidney failure, unspecified (principal); M81.0 Age-related osteoporosis without current pathological fracture; G43.909 Migraine, unspecified, not intractable, without status migrainosus; E83.42 Hypomagnesemia; N13.30 Unspecified hydronephrosis; I25.10 Atherosclerotic heart disease of native coronary artery without angina pectoris; K21.9 Gastro-esophageal reflux disease without esophagitis; E87.6 Hypokalemia; I12.9 Hypertensive chronic kidney disease with stage 1 through stage 4 chronic kidney disease, or unspecified chronic kidney disease; N18.30 Chronic kidney disease, stage 3 unspecified; D63.1 Anemia in chronic kidney disease; M25.512 Pain in left shoulder; Z96.641 Presence of right artificial hip joint; E83.51 Hypocalcemia; E78.5 Hyperlipidemia, unspecified; Z91.040 Latex allergy status; I25.2 Old myocardial infarction; Z86.73 Personal history of transient ischemic attack (TIA), and cerebral infarction without residual deficits; Z85.41 Personal history of malignant neoplasm of cervix uteri; Z90.81 Acquired absence of spleen; Z87.891 Personal history of nicotine dependence; Z92.21 Personal history of antineoplastic chemotherapy; Z86.718 Personal history of other venous thrombosis and embolism; Z79.899 Other long term (current) drug therapy; Z86.19 Personal history of other infectious and parasitic diseases
CPT/HCPCS: 36415; 74177; 80048; 80053; 81001; 82270; 83735; 84132; 85025; 85027; 96361; 96365-59; 96366; 99284-25; A9270; J3475; J3480; J7030; J7120; Q9967

== ENCOUNTER 2025-08-17 20:40 | Emergency (ER) | payer OTHER, MEDICARE ==
[~2025-08-17] VITALS: Ht 154.9 cm; Wt 39.9 kg
[~2025-08-17 20:40] MED LIST changes: +MAGNESIUM OXID500 MG PO; +TAMS.4ER PO
[2025-08-17 21:22] LABS: BASOPHILS ABSOLUTE AUTO 0.08 K/mm3 (0.00-0.23); BASOPHILS PERCENT AUTO 1 % (0-2); EOSINOPHILS ABSOLUTE AUTO 0.48 K/mm3 (0.00-0.68); EOSINOPHILS PERCENT AUTO 6 % (0-6); Hematocrit 27.1 % (33.0-51.0); Hemoglobin 8.9 g/dL (11.5-16.0); IMMATURE GRAN ABSOLUTE AUTO 0.03 K/mm3 (0.00-0.10); IMMATURE GRAN PERCENT AUTO 0 % (0-1); LYMPHOCYTES ABSOLUTE AUTO 2.00 K/mm3 (0.84-5.20); LYMPHOCYTES PERCENT AUTO 24 % (21-46); MONOCYTES ABSOLUTE AUTO 0.89 K/mm3 (0.16-1.47); MONOCYTES PERCENT AUTO 11 % (4-13); Mean Corpuscular HGB Conc 32.8 g/dL (31.5-36.5); Mean Corpuscular Volume 91 fL (80-100); NEUTROPHILS ABSOLUTE AUTO 4.81 K/mm3 (1.96-9.15); NEUTROPHILS PERCENT AUTO 58 % (41-73); NRBC ABSOLUTE 0.00 K/mm3 (0.00-0.02); NRBC Auto 0.0 /100 WBC (0.0-0.2); Platelet Count 324 K/mm3 (150-400); RDW Coefficient Variation 15.2 % (11.7-14.2); RDW Standard Deviation 50.4 fL (35.1-46.3)
[2025-08-17 21:33] LABS: Source, Urine Clean Catch
[2025-08-17 21:36] LABS: Bilirubin, Urine Neg (Neg); Color, Urine Yellow (P-Yellow); Glucose Qualitative, Urine Neg (Neg); Ketones, Urine Neg (Neg); Leukocyte Esterase, Urine Neg (Neg); Protein, Urine 1+ (Neg); Specific Gravity, Urine 1.005 (1.003-1.022); Urobilinogen, Urine NORM (Normal)
[2025-08-17 21:45] LABS: Alanine Aminotransfer (ALT/SGP 12.0 U/L (12-78); Albumin, Blood 2.6 g/dL (3.4-5.0); Albumin/Globulin Ratio 0.7 (0.8-1.8); Anion Gap 12.0 mmol/L (3-11); Aspartate Aminotrans (AST/SGOT 26.0 U/L (12-37); Bilirubin, Total 0.6 mg/dL (0.1-1.0); Blood Urea Nitrogen 17.0 mg/dL (8-24); CO2, Blood 16.0 mmol/L (21-32); Calcium, Blood 8.2 mg/dL (8.5-10.1); Chloride, Blood 113.0 mmol/L (98-108); Creatinine, Blood 1.78 mg/dL (0.40-1.00); Globulin, Blood 3.6 g/dL (2.2-4.0); Glucose, Blood 85.0 mg/dL (70-99); Potassium, Blood 4.1 mmol/L (3.5-5.5); Sodium, Blood 137.0 mmol/L (136-145); Total Protein, Blood 6.2 g/dL (6.4-8.2)
[2025-08-17 21:55] LABS: Red Blood Cells, Urine 0-2 /hpf (0-2); White Blood Cells, Urine 0-2 /hpf (0-5)
[2025-08-17] MEDS ORDERED: NS 1,000 ML IV SCH (22:05)
[2025-08-17 22:46] LABS: Magnesium, Blood 1.4 mg/dL (1.6-2.4)
[2025-08-17 23:04] LABS: pH Blood Venous 7.49 (7.34-7.37)
[2025-08-17] MEDS ORDERED: Magnesium Sulf 2 GM/Water 50ML 50 ML IV ONE (23:20)
[2025-08-18] MEDS ORDERED: MAGNESIUM OXID500 MG PO (01:11)
[2025-08-18 01:26] VITALS: BP 156/99
== END 2025-08-18 01:28 | disposition home or self-care (01) ==
LOC: ER 20:40
PROVIDERS: Emergency Medicine
DX: E86.0 Dehydration (principal); E83.42 Hypomagnesemia; Z87.891 Personal history of nicotine dependence; Z86.73 Personal history of transient ischemic attack (TIA), and cerebral infarction without residual deficits; Z79.899 Other long term (current) drug therapy; Z91.040 Latex allergy status
CPT/HCPCS: 80053; 81001; 82803; 83735; 85025; 93005; 93010; 96361; 96365; 99284-25; J3475; J7030

== ENCOUNTER 2025-08-30 14:22 | Emergency (ER) | payer OTHER, MEDICARE ==
[~2025-08-30] VITALS: Ht 152.4 cm; Wt 39.9 kg
[2025-08-30] MEDS ORDERED: Ondansetron HCl 2 MG / ML 2ML Vial IV ONE (14:45)
[2025-08-30 15:14] LABS: Source, Urine Clean Catch
[2025-08-30] MEDS ORDERED: NS 500 ML IV SCH (15:15)
[2025-08-30 15:21] LABS: BASOPHILS ABSOLUTE AUTO 0.10 K/mm3 (0.00-0.23); BASOPHILS PERCENT AUTO 1 % (0-2); EOSINOPHILS ABSOLUTE AUTO 0.41 K/mm3 (0.00-0.68); EOSINOPHILS PERCENT AUTO 3 % (0-6); Hematocrit 34.1 % (33.0-51.0); Hemoglobin 10.6 g/dL (11.5-16.0); IMMATURE GRAN ABSOLUTE AUTO 0.06 K/mm3 (0.00-0.10); IMMATURE GRAN PERCENT AUTO 1 % (0-1); LYMPHOCYTES ABSOLUTE AUTO 2.26 K/mm3 (0.84-5.20); LYMPHOCYTES PERCENT AUTO 19 % (21-46); MONOCYTES ABSOLUTE AUTO 1.11 K/mm3 (0.16-1.47); MONOCYTES PERCENT AUTO 9 % (4-13); Mean Corpuscular HGB Conc 31.1 g/dL (31.5-36.5); Mean Corpuscular Volume 96 fL (80-100); NEUTROPHILS ABSOLUTE AUTO 8.18 K/mm3 (1.96-9.15); NEUTROPHILS PERCENT AUTO 68 % (41-73); NRBC ABSOLUTE 0.00 K/mm3 (0.00-0.02); NRBC Auto 0.0 /100 WBC (0.0-0.2); Platelet Count 492 K/mm3 (150-400); RDW Coefficient Variation 15.9 % (11.7-14.2); RDW Standard Deviation 55.4 fL (35.1-46.3)
[2025-08-30 15:45] LABS: Alanine Aminotransfer (ALT/SGP 25.0 U/L (12-78); Albumin, Blood 3.5 g/dL (3.4-5.0); Albumin/Globulin Ratio 0.7 (0.8-1.8); Anion Gap 12.0 mmol/L (3-11); Aspartate Aminotrans (AST/SGOT 28.0 U/L (12-37); Bilirubin, Total 0.6 mg/dL (0.1-1.0); Blood Urea Nitrogen 30.0 mg/dL (8-24); CO2, Blood 17.0 mmol/L (21-32); Calcium, Blood 9.2 mg/dL (8.5-10.1); Chloride, Blood 111.0 mmol/L (98-108); Creatinine, Blood 1.91 mg/dL (0.40-1.00); Globulin, Blood 4.9 g/dL (2.2-4.0); Glucose, Blood 140.0 mg/dL (70-99); Potassium, Blood 4.4 mmol/L (3.5-5.5); Sodium, Blood 136.0 mmol/L (136-145); Total Protein, Blood 8.4 g/dL (6.4-8.2)
[2025-08-30 15:55] LABS: Bilirubin, Urine Neg (Neg); Color, Urine Yellow (P-Yellow); Glucose Qualitative, Urine Neg (Neg); Ketones, Urine Neg (Neg); Leukocyte Esterase, Urine Neg (Neg); Protein, Urine 3+ (Neg); Specific Gravity, Urine 1.010 (1.003-1.022); Urobilinogen, Urine NORM (Normal)
[2025-08-30 16:16] LABS: Red Blood Cells, Urine 0-2 /hpf (0-2); White Blood Cells, Urine 0-2 /hpf (0-5)
[2025-08-30 18:00] VITALS: BP 151/101
[2025-08-30] MEDS ORDERED: Tylenol325 MG PO (18:10)
[2025-08-30] MEDS ORDERED: Voltaren100 GM TOP (18:10)
[2025-08-30] MEDS ORDERED: ONDA4ODT MM (18:19)
== END 2025-08-30 18:29 | disposition home or self-care (01) ==
LOC: ER 14:22
PROVIDERS: Emergency Medicine
DX: M54.50 Low back pain, unspecified (principal); N13.30 Unspecified hydronephrosis; N18.9 Chronic kidney disease, unspecified; I25.2 Old myocardial infarction; M81.0 Age-related osteoporosis without current pathological fracture; Z86.73 Personal history of transient ischemic attack (TIA), and cerebral infarction without residual deficits; Z87.891 Personal history of nicotine dependence; Z91.040 Latex allergy status; Z79.01 Long term (current) use of anticoagulants; Z79.899 Other long term (current) drug therapy
CPT/HCPCS: 74177; 80053; 81001; 83690; 83735; 85025; 96361; 96374-59; 99284-25; A9270; J2405; J7030; Q9967